=== PATIENT | female | born 1935 | race Two or more races ===

== ENCOUNTER 2017-12-29 15:52 | Outpatient (CLI) | payer OTHER ==
[~2017-12-29 15:52] MED LIST: LEVSIN0.125 MG PO; LIPOFLAVOVIT CA1 TAB PO; MICARDIS40 MG PO; ZANTAC300 MG PO; ZOFRAN4 MG PO
== END 2017-12-29 16:04 | disposition home or self-care (01) ==
LOC: RAD 15:52
DX: M20.41 Other hammer toe(s) (acquired), right foot (principal); M20.42 Other hammer toe(s) (acquired), left foot

== ENCOUNTER → 2019-05-23 | Outpatient (CLI) | payer OTHER | END | disposition home or self-care (01) | LOC: NUCLEAR 09:45 | DX: I11.9 Hypertensive heart disease without heart failure (principal); R53.83 Other fatigue; R01.1 Cardiac murmur, unspecified; E03.9 Hypothyroidism, unspecified; I35.9 Nonrheumatic aortic valve disorder, unspecified ==

== ENCOUNTER 2020-06-30 10:53 | Outpatient (CLI) | payer OTHER | END 2020-06-30 11:07 | disposition home or self-care (01) | LOC: RAD 10:53 | PROVIDERS: ATTEND Internal Medicine Cardiovascular Disease | DX: M54.16 Radiculopathy, lumbar region (principal); M15.8 Other polyosteoarthritis ==